=== PATIENT | female | born 1995 ===

== ENCOUNTER 2021-12-10 20:09 | Emergency (ER) | payer OTHER ==
[~2021-12-10] VITALS: Ht 167.6 cm; Wt 102.1 kg
== END 2021-12-10 21:16 | disposition home or self-care (01) ==
LOC: ER 20:09
DX: S93.401A Sprain of unspecified ligament of right ankle, initial encounter (principal); X50.9XXA Other and unspecified overexertion or strenuous movements or postures, initial encounter; Y93.68 Activity, volleyball (beach) (court)
CPT/HCPCS: 73610